=== PATIENT | male | born 1980 | race African-American/Black ===

== ENCOUNTER 2021-05-18 10:49 | Outpatient (CLI) | payer OTHER ==
[2021-05-18 11:50] LABS: PLATELET COUNT 210 K/uL (142-355)
[2021-05-18 11:56] LABS: POTASSIUM 3.8 mmol/L (3.6-5.2)
== END 2021-05-18 19:06 | disposition home or self-care (01) ==
LOC: LABW 10:49
PROVIDERS: ATTEND Family Medicine
DX: Z86.16 Personal history of COVID-19 (principal); J02.9 Acute pharyngitis, unspecified; R05.9 Cough, unspecified
CPT/HCPCS: 36415; 80053; 85027